=== PATIENT | male | born 1990 | race Two or more races ===

== ENCOUNTER 2017-12-19 12:18 | Emergency (ER) | payer OTHER, BC ==
[2017-12-19 12:27] VITALS: BP 152/82
--- NOTE | 2017-12-19 13:09 | RADIOLOGY REPORT (SQ) ---
EXAM DESCRIPTION: FOOT RIGHT COMPLETE COMPLETED DATE/TIME: 12/19/2017 12:51 pm REASON FOR STUDY: injury felt a pop plantar right foot while carrying something heavy COMPARISON: None. NUMBER OF VIEWS: Three views. TECHNIQUE: AP, lateral and oblique radiographic images acquired of the right foot. LIMITATIONS: None. FINDINGS: MINERALIZATION: Normal. BONES: No acute fracture or dislocation. No worrisome bone lesions. JOINTS: No effusions. SOFT TISSUES: No soft tissue swelling. No foreign body. OTHER: No other significant finding. IMPRESSION: NEGATIVE STUDY OF THE RIGHT FOOT. NO RADIOGRAPHIC EVIDENCE OF ACUTE INJURY. TECHNICAL DOCUMENTATION: JOB ID: [id number] [employer]- All Rights Reserved Reading location - IP/workstation name: [email or web address]
--- NOTE | 2017-12-19 13:11 | RADIOLOGY REPORT (SQ) ---
EXAM DESCRIPTION: ANKLE RIGHT COMPLETE COMPLETED DATE/TIME: 12/19/2017 12:57 pm REASON FOR STUDY: injury COMPARISON: None. NUMBER OF VIEWS: Three views. TECHNIQUE: AP, lateral, and oblique radiographic images acquired of the right ankle. LIMITATIONS: None. FINDINGS: MINERALIZATION: Normal. BONES: Acute spiral minimally displaced fracture distal right fibular metaphysis. This is at the lev el of the tibial plafond, with questionable widening of the medial ankle mortise. Distal tibia, talus, calcaneus intact. JOINTS: Tibiotalar joint effusion. Question mild widening of the medial ankle mortise on the AP view SOFT TISSUES: Diffuse lateral soft tissue swelling. No foreign body. OTHER: No other significant finding. IMPRESSION: Acute fracture distal right fibular metaphysis, with slight lateral displacement of the distal fracture fragment and widening of the medial ankle mortise TECHNICAL DOCUMENTATION: JOB ID: [id number] [employer]- All Rights Reserved Reading location - IP/workstation name: [email or web address]
--- NOTE | 2017-12-19 13:40 | ER Document Report ---
HPI - HPI Patient complains to provider of: twisted right ankle Onset: This morning Pain Level: 4 Context: 27 yo male twisted right ankle moving refrigerator down stairs this morning. Associated Symptoms: None Exacerbated by: Walking Relieved by: Denies Similar symptoms previously: No Recently seen / treated by doctor: No - ROS ROS below otherwise negative: Yes Systems Reviewed and Negative: Yes All other systems reviewed and negative Past Medical History - General Information source: Patient - Social History Smoking Status: Unknown if Ever Smoked Lives with: Spouse/Significant other Family History: Reviewed & Not Pertinent - Medical History Medical History: Negative Surgical Hx: Negative - Immunizations Hx Diphtheria, Pertussis, Tetanus Vaccination: Yes Vertical Provider Document - CONSTITUTIONAL Agree With Documented VS: Yes Exam Limitations: No Limitations General Appearance: No Apparent Distress - INFECTION CONTROL TRAVEL OUTSIDE OF THE [place] IN LAST 30 DAYS: No - MUSCULOSKELETAL/EXTREMETIES Musculoskeletal/Extremeties: Tender - lateral malleolus, Edema - NEURO Level of Consciousness: Awake Motor/Sensory: No Motor Deficit, No Sensory Deficit Notes: 2+ dp Course - Re-evaluation Re-evalutation: 12/19/17 spiral distal fibula per rad - Vital Signs Vital signs: Temp Pulse Resp BP Pulse Ox 97.4 F 80 16 152/82 H 99 12/19/17 12:26 12/19/17 12:26 12/19/17 12:26 12/19/17 12:26 12/19/17 12:26 Procedures - Immobilization Right Ankle Time completed: 13:50 Pre-Proc Neuro Vasc Exam: Normal Immobilizer type: Crutches, Posterior ankle Performed by: PCT Post-Proc Neuro Vasc Exam: Normal Alignment checked and good: Yes Discharge - Discharge Clinical Impression: Spiral fracture distal right Condition: Good Disposition: HOME, SELF-CARE Instructions: Use of Crutches ([facility]), Ice & Elevation ([facility]), Splint Pending Casting ([facility]), Splint Precautions ([facility]) Additional Instructions: Call and schedule appointment with orthopedist Do not bear weight on her ankle Keep the splint on Crutches Motrin 800 mg 3 times a day Tylenol up to 4000 mg a day for pain Elevate and ice Prescriptions: Ibuprofen [Motrin 800 mg Tablet] 800 mg PO Q8HP PRN #30 tablet PRN Reason: Forms: Return to Work
[2017-12-19] MEDS ORDERED: IBUPROFEN 800 MG TABLET PO ONE (13:50)
[2017-12-19] MEDS ORDERED: ACETAMINOPHEN 325 MG TABLET PO ONE (13:50)
== END 2017-12-19 14:20 | disposition home or self-care (01) ==
LOC: ER 12:18
DX: S82.441A Displaced spiral fracture of shaft of right fibula, initial encounter for closed fracture (principal); X50.0XXA Overexertion from strenuous movement or load, initial encounter; Y99.0 Civilian activity done for income or pay
CPT/HCPCS: 99283